=== PATIENT | female | born 1945 | race Hispanic/Latino ===

== ENCOUNTER 2019-06-17 14:26 | Outpatient (CLI) | payer MEDICARE ==
[2019-06-17 14:58] LABS: Hematocrit 44.1 % (30.3-42.9); Hemoglobin 14.8 gm/dl (10.1-14.3); Mean Corpuscular HGB Conc 34 % (30-34); Mean Corpuscular Volume 104 fl (79-97); Platelet Count 153 K/mm3 (140-440); Red Blood Count 4.26 M/mm3 (3.65-5.03); Red Cell Distribution Width 12.7 % (13.2-15.2)
[2019-06-17 15:20] LABS: Alanine Aminotransferase 51 units/L (7-56); Albumin 4.7 g/dL (3.9-5); BUN/Creatinine Ratio 18; Blood Urea Nitrogen 11 mg/dL (7-17); Calcium 9.9 mg/dL (8.4-10.2); Hemolysis Index 4
[2019-06-17 15:28] LABS: Erythrocyte Sedimentation Rate 6 mm/Hr (0-20)
[2019-06-21 15:35] LABS: Vitamin D, 25-OH, D2 5 ng/mL
[2019-06-23 13:17] LABS: ANA Screen, IFA Negative (Negative)
== END 2019-06-17 14:27 | disposition home or self-care (01) ==
LOC: LAB 14:26
PROVIDERS: ATTEND Specialist
DX: E11.42 Type 2 diabetes mellitus with diabetic polyneuropathy (principal); Z11.59 Encounter for screening for other viral diseases
CPT/HCPCS: 36415; 80053; 82306; 82607; 82747; 83036; 83921; 84443; 85027; 85652; 86038; 86225; 86334; 86592